=== PATIENT | female | born 1995 | race Caucasian/White ===

== ENCOUNTER 2019-10-18 04:43 | Inpatient (IN) | payer MEDICAID ==
[2019-10-18 06:04] LABS: Urine Benzodiazepine Screen None Detected (None Detect); Urine Opiates Screen None Detected (None Detect)
[2019-10-18 06:40] LABS: ABS Eosinophils 0.2 10^3/ul (0-0.6); ABS Lymphocytes 2.9 10^3/ul (1.0-4.8); ABS Monocytes 0.8 10^3/ul (0-0.8); ABS Neutrophils 6.3 10^3/ul (1.5-7.7); Eosinophil % 2.2 %; Hematocrit 36 % (35-47); Hemoglobin 12.5 g/dL (12.0-16.0); Lymphocyte % 28.5 %; Mean Corpuscular HGB Conc 35 g/dL (31-36); Mean Corpuscular Hemoglobin 31 pg (27-31); Mean Corpuscular Volume 88 fL (80-97); Mean Platelet Volume 8.9 fL (7.4-10.4); Platelet Count 207 10^3/uL (150-450); Red Blood Count 4.06 10^6 /uL (3.70-4.87); Red Cell Distribution Width 14 % (10-15); White Blood Count 10.3 10^3/uL (3.5-10.8)
[2019-10-18] MEDS ORDERED: OBEPIDURAL* 250 ML EPIDURAL ONE (07:02)
[2019-10-18] MEDS ORDERED: Lactated Ringers 1000 ML Bag* 1,000 ML IV ONE ×2 (07:11→07:57)
[2019-10-18] MEDS ORDERED: Buffered Lidocaine 1% SYRIN* 1 ML/SYRINGE INTRADERM ONE (07:11)
[2019-10-18] MEDS ORDERED: fentaNYL* 50 MCG/ML 2 ML VIAL (100 MCG VIAL) ONE (07:15)
[2019-10-18] MEDS ORDERED: Famotidine TAB* 20 MG PO PRN (07:57)
[2019-10-18] MEDS ORDERED: Lactated Ringers 1000 ML Bag* 500 ML IV PRN (07:57)
[2019-10-18] MEDS ORDERED: Phenylephrine 40 MCG/ML SYRINGE IV PUSH PRN ×2 (07:57)
[2019-10-18] MEDS ORDERED: Lactated Ringers 1000 ML Bag* 1,000 ML IV SCH ×3 (08:00→20:00)
[2019-10-18] MEDS ORDERED: OBEPIDURAL* 250 ML EPIDURAL SCH (08:00)
--- NOTE | 2019-10-18 08:38 | HP ---
General Information - Reason for Visit SROM at 3 am, labor - General Information Maternal Age: 23 Grav: 1 Para: 0 SAB: 0 IEA: 0 Estimated Due Date: 10/26/19 Determined By: LMP Gestational Age in Weeks/Days: 38w6d Maternal Blood Type and Rh: A Positive - Results this Serology/RPR Result: Non-Reactive Rubella Result: Immune HBsAg Result: Negative HIV Result: Negative GBS Culture Result: Negative Past Medical History Pertinent Past Medical History: See Records - Multiple Sclerosis on Meds, 3.6cm Fundal Uterine Fibroid Pertinent Past Surgical History: None Pertinent Family History: Non-Contributory - Antepartal Records Antepartal Records: Reviewed, Complicated by: - MS, Bilateral Club Feet, 3.6cm Fundal Fibroid Review of Systems Constitutional: Uncomfortable CV Complaint: No Respiratory: Shortness of Breath: No Gastrointestinal: No Nausea/Vomiting, Normal Bowel Movement Genitourinary: Leaking Fluid, No Dysuria, No Bleeding Musculoskeletal: No Epigastric Pain, Contractions Neurological: No Headache, No Visual Changes Movement: Normal Exam Allergies/Adverse Reactions: Allergies baclofen Allergy (Verified 10/18/19 05:41) Joint Pain glatiramer (copolymer 1) Allergy (Verified 10/18/19 05:41) Hives/Diff.Breathing/Itching mannitol Allergy (Verified 10/18/19 05:41) Hives/Diff.Breathing/Itching T 97.9 P 97 RR 20 BP 118/76 O2 Sat 100% Lab Values - Entire Visit: Laboratory Tests 10/18/19 10/18/19 10/18/19 05:15 05:15 06:13 WBC 10.3 RBC 4.06 Hgb 12.5 Hct 36 MCV 88 MCH 31 MCHC 35 RDW 14 Plt Count 207 MPV 8.9 Neut % (Auto) 61.4 Lymph % (Auto) 28.5 Garrard % (Auto) 7.5 Eos % (Auto) 2.2 Baso % (Auto) 0.4 Absolute Neuts (auto) 6.3 Absolute Lymphs (auto) 2.9 Absolute Monos (auto) 0.8 Absolute Eos (auto) 0.2 Absolute Basos (auto) 0.0 Absolute Nucleated RBC 0.0 Nucleated RBC % 0.0 Vag Amniotic Fld Detect Positive Urine Opiates Screen None detected Ur Barbiturates Screen None detected Ur Phencyclidine Scrn None detected Ur Amphetamines Screen None detected U Benzodiazepines Scrn None detected Urine Cocaine Screen None detected Blood Type Antibody Screen 10/18/19 06:13 WBC RBC Hgb Hct MCV MCH MCHC RDW Plt Count MPV Neut % (Auto) Lymph % (Auto) Garrard % (Auto) Eos % (Auto) Baso % (Auto) Absolute Neuts (auto) Absolute Lymphs (auto) Absolute Monos (auto) Absolute Eos (auto) Absolute Basos (auto) Absolute Nucleated RBC Nucleated RBC % Vag Amniotic Fld Detect Urine Opiates Screen Ur Barbiturates Screen Ur Phencyclidine Scrn Ur Amphetamines Screen U Benzodiazepines Scrn Urine Cocaine Screen Blood Type A Positive Antibody Screen Negative - Measurements Height: 5 ft 3 in Weight: 170 lb Weight in lbs: 170.758660 Body Mass Index (BMI): 30.1 Pre- Weight: 150 lb 0.005 oz Weight Gained This : 19.999 lbs and 0.011 ozs - Exam Breast: Breast Exam Deferred CVA: No CVA Tenderness Extremities: No Edema Heart: Normal Rhythm/Heart Sounds HEENT: No Significant Findings Lungs: Clear Bilaterally Rectal: Rectal Exam Deferred Reflexes: DTR 2+ Thyroid: No Thyromegaly - Abdominal Exam Abdomen Exam: Non-Tender, Fundal Height Consistent with Dates - Ultrasound/Biophysical Profile Ultrasound Status: Not Done Targeted Exam Findings Estimated Weight: 7#8oz Cervical Exam: 5cm Effacement: 90% Station: 0 Presenting Part: Vertex Membrane Status: SROM Amniotic Fluid Evaluation: Gross Rupture Bleeding/Discharge: None EFM Findings - External Monitor Findings Baseline Heart Rate: 125 External Monitor Findings: Accelerations Present, No Pattern of Variable or Late Decelerations, Variability Moderate, Baseline Stable External Monitor Findings Comment: Category I FHT Contractions: Regular, Moderate, 45-90 Seconds - Contractions q 3 minute Assessment/Plan - Assessment 23 y/o G1 at 38w6d with SROM in labor Hx of MS - will receive Tysabri in post period shortly after discharge, Neurologist Dr. Black Bilateral Club feet - normal NIPT - peds PP - Plan Plan: Admit - Anticipate Vaginal Delivery - Date/Time of Admission Date of Admission: 10/18/19 Time of Admission: 08:00
[2019-10-18 10:05] LABS: Urine Benzodiazepine Screen None Detected (None Detect); Urine Opiates Screen None Detected (None Detect)
--- NOTE | 2019-10-18 11:18 | PN ---
Progress Note - Progress Note Date of Service: 10/18/19 Note: Cervix re-examined. 5-6cm/100%/0 station. Suspect essentially unchanged from prior exam by different examiner. Now ruptured x > 8 hours with minimal change since arrival. FHT is reactive with moderate variability, no pattern of late or variable decels. Contractions have spaced out and are irregular. Will augment with low dose Pitocin at this time. Comfortable with Epidural Re-examine as clinically indicated Anticipate vaginal delivery Jose Perez, OBALEXANDRA
[2019-10-18] MEDS ORDERED: Oxytocin in LR* 20 UNITS/1,000 ML BAG IVPB SCH (12:00)
[2019-10-18] MEDS ORDERED: Ondansetron INJ* 2 MG/ML VIAL IV PRN (13:34)
[2019-10-18] MEDS ORDERED: diPHENhydraMINE IV* 50 MG/ML 1 ml VIAL (BENADRYL) IV PRN (13:35)
--- NOTE | 2019-10-18 14:39 | PN ---
Progress Note - Progress Note Date of Service: 10/18/19 Note: Pitocin at 10mu. Pt feeling increased pressure. Cervix re-examined and found to be 7cm/10%/0 station, slight edema, bloody shower. FHT has been reactive and reassuring. Pt with nausea. Will give Zofran for nausea, Benadryl for slightly edematous cervix. Continue to titrate pitocin. Continue to monitor closely. Re-examine as clinically indicated. DO JENNY Damon
--- NOTE | 2019-10-18 17:47 | PN ---
Progress Note - Progress Note Date of Service: 10/18/19 Note: Pit at 16 mU Pt contractions increasing in frequency and intensity, now q 2-3 minutes. Feeling more pressure with contractions, but not ready to push. FHT is reactive and reassuring with baseline of 130/moderate/+accels/no decels - Category I Plan to re-examine when pt feels ready to push or tracing demands, cont pit per protocol and as long as safe Anticipate vaginal delivery Jose Chris, OBCHRISN
[2019-10-18] MEDS ORDERED: Dibucaine 1% 28.35 GM TUBE ONE (19:08)
[2019-10-18] MEDS ORDERED: Witch Hazel PAD* JAR ONE (19:08)
--- NOTE | 2019-10-18 19:28 | PROCNOTE ---
[facility] OB: Delivery Note - Delivery A Date of : 10/18/19 Time of : 18:54 [place] Weight at : 7 lb 15 oz Score 1 Minute: 9 Score 5 Minutes: 10 Gestational Age in Weeks and Days at Delivery: 38 Weeks and 6 Days Delivery Method: Spontaneous Vaginal Labor: Spontaneous Did Patient attempt ?: N/A, No Previous Amniotic Fluid: Clear Estimated Blood Loss: 250 Anesthesia/Analgesia: CEI for Labor Delivered By: Manny Perez JR - Nursery Level of Nursery: Regular/Bedside - Perineum Perineal Injury: None/Intact, Abrasion Only - Not Repaired Perineal Repair: None - Events Delivery Events of Note: Pitocin During Labor - Risk for Falls Other Risk for Falls: Pt. has MS - Additional Delivery Notes Additional Delivery Notes: Vaginal delivery over intact perineum after short period of pushing. In tact whole placenta spontaneously delivered after >5 minutes of delayed cord clamping. 3VC. Apgars 9 and 10. Small bilateral periurethral abrasions, hemostatic, no indication to repair. EBL 250mL. Mother and doing well at the time of this note. DO JENNY Damon
[2019-10-18] MEDS ORDERED: Witch Hazel PAD* JAR TOPICAL PRN (19:51)
[2019-10-18] MEDS ORDERED: Glycerin ADULT SUPP PR PRN (19:51)
[2019-10-18] MEDS ORDERED: Dibucaine 1% 28.35 GM TUBE PR PRN (19:51)
[2019-10-18] MEDS: Docusate CAP* 100 MG PO SCH (20:45)
[2019-10-18] MEDS: Ibuprofen TAB* 600 MG PO PRN (20:45)
[2019-10-18] MEDS ORDERED: Simethicone TAB* 80 MG TAB.CHEW PO SCH (21:00)
[2019-10-18] MEDS: Acetaminophen TAB* 325 MG PO PRN (21:51)
[2019-10-19] MEDS: Ibuprofen TAB* 600 MG PO PRN ×3 (04:22→18:20)
[2019-10-19] MEDS: Acetaminophen TAB* 325 MG PO PRN (06:28)
[2019-10-19 06:39] LABS: ABS Basophils 0.1 10^3/ul (0-0.2); ABS Eosinophils 0.2 10^3/ul (0-0.6); ABS Lymphocytes 2.9 10^3/ul (1.0-4.8); ABS Monocytes 1.1 10^3/ul (0-0.8); ABS Neutrophils 12.2 10^3/ul (1.5-7.7); Eosinophil % 1.1 %; Hematocrit 31 % (35-47); Hemoglobin 10.5 g/dL (12.0-16.0); Lymphocyte % 17.5 %; Mean Corpuscular HGB Conc 35 g/dL (31-36); Mean Corpuscular Hemoglobin 31 pg (27-31); Mean Corpuscular Volume 88 fL (80-97); Mean Platelet Volume 8.3 fL (7.4-10.4); Platelet Count 180 10^3/uL (150-450); Red Blood Count 3.45 10^6 /uL (3.70-4.87); Red Cell Distribution Width 14 % (10-15); White Blood Count 16.5 10^3/uL (3.5-10.8)
[2019-10-19] MEDS ORDERED: Ferrous Gluconate TAB* 324 MG TAB PO SCH (09:00)
[2019-10-19] MEDS: Docusate CAP* 100 MG PO SCH ×4 (09:47→20:25)
[2019-10-20 08:02] VITALS: BP 104/60
[2019-10-20] MEDS: Ibuprofen TAB* 600 MG PO PRN (09:03)
[2019-10-20] MEDS: Docusate CAP* 100 MG PO SCH (09:03)
== END 2019-10-20 12:25 | disposition home or self-care (01) | DRG 560 ==
LOC: MCHOBOUT 04:43 → MCHOB 04:51
PROVIDERS: ADMIT Obstetrics & Gynecology; ATTEND Obstetrics & Gynecology
PROC: 10E0XZZ Delivery of Products of Conception, External Approach (ICD-10-PCS; principal; 2019-10-18)
DX: O99.354 Diseases of the nervous system complicating childbirth (principal); Z37.0 Single live birth; G35 Multiple sclerosis; O34.10 Maternal care for benign tumor of corpus uteri, unspecified trimester; D25.9 Leiomyoma of uterus, unspecified; O70.0 First degree perineal laceration during delivery; Z3A.38 38 weeks gestation of pregnancy
CPT/HCPCS: 36415; 80307; 84112; 85025; 86850; 86900; 86901; A9270-GY; G0480; J1200; J2405; J3010